=== PATIENT | male | born 1970 | race Caucasian/White ===

== ENCOUNTER 2023-07-21 08:38 | Outpatient (AMB) | payer OTHER, SELFPAY ==
[2023-07-21 08:50] VITALS: BP 124/86; PULSE 56; RESP 14; O2SAT 99; BMI 25.9
--- NOTE | 2023-07-21 08:50 | A.OFFVIS_ITS ---
Intake Vital Signs 3 07/21/23 08:50 Height 6 ft Weight 191 lb 4 oz BMI 25.9 BP 124/86 Blood Pressure Location Lt brachial Position Sitting Respiration 14 Pulse 56 Pulse Source Pulse Oximeter Pulse Oximetry (%) 99 Oxygen Delivery Method Room Air Intake Visit Reasons: Cervical Radiculopathy Allergies No Known Allergies Allergy (Verified 07/21/23 08:44) HPI HPI Comments 2 History of Present Illness0 Details Jp is a very pleasant 52-year-old male who presents to the office today with complaints of cervical neck pain and paresthesia of the right distal arm and hand. Patient reports he has been suffering with this for greater than 3 months, he denies inciting injury but does report that he has been training for a triathlon. His most bothersome symptom is paresthesia of the right arm, described as numbness, pins and needles. At times in the medial and lateral forearm, but continuously to the 2nd 3rd and 4th digits of the right hand. Patient is concerned that this will turn into permanent damage if it is not treated. He had a recent x-ray of his cervical spine which showed some degenerative changes at C5-6. His most recent MRI was back in 2019, results are not available for review at this time. He has tried home exercise program that was professionally guided, massage which exacerbated the pain, yoga which exacerbated the pain, he is currently doing PT and fascia work but has not noticed any improvement with this. He is under the care of a chiropractor, has never had injections to the neck. He has currently not taking any medications for the pain or paresthesia. In terms of muscle damage condition is described as tingling, pins and needles. Condition is negatively impacting patient's normal work, recreational activities and sleep. Review of Systems Const All systems reviewed & are unremarkable except as noted in HPI and below Physical Exam Vital Signs: Last Vital Signs Pulse 56 07/21/23 08:50 Resp 14 07/21/23 08:50 BP 124/86 07/21/23 08:50 Pulse Ox 99 07/21/23 08:50 Oxygen Delivery Method Room Air 07/21/23 08:50 BMI result Body Mass Index 25.9 General: awake, alert, oriented. Answers questions appropriately. Fully engaged in examination. Skin: warm, dry, intact HEENT: Normocephalic. Hearing intact. Cardiac: External chest normal in appearance. Respiratory: No cough, audible wheezing or stridor. Abdomen: without gross distension. MS: No obvious swelling or deformities. Spurling negative Elvey positive Signals Intelligence Analysis Manager strength equal bilateral Decreased light touch sensation right 3rd 4th 5th digits DTR intact Cap refill brisk Full cervical range of motion Neurological: Oriented to person, place, time and situation. Thought process intact. Psychiatric: Appropriate mood and affect. Good judgment and insight. Results Reviewed Results Reviewed: Assessment & Plan Assessment & Plan (1) Paresthesia of right arm: Code(s): R20.2 - Paresthesia of skin (2) Cervical radiculopathy: Code(s): M54.12 - Radiculopathy, cervical region Plan Jp is a very pleasant 52-year-old male who presented to the office today for evaluation management of his neck pain and right arm paresthesia EMG ordered to evaluate right arm/hand paresthesia MRI cervical spine without contrast ordered to evaluate for nerve root compression Discussed options for medications to assist with the burning, numbness and tingling of his right arm and hand. Discussed the options and potential side effects. Patient declines medications at this time. Continue with gentle stretching and light exercises as tolerated Follow up in the office after MRI/EMG to review results and further develop care plan. Orders: Orders 2 MR cervical spine wo con Today M54.12 - Radiculopathy, cervical region, R20.2 - Paresthesia of skin NE electromyogram (EMG) Today R20.2 - Paresthesia of skin Coding Level of Care Code New Pt Level 4 (33022) Diagnoses Paresthesia of right arm R20.2 Cervical radiculopathy M54.12
== END 2023-07-21 09:15 | disposition home or self-care (01) ==
PROVIDERS: PCP Internal Medicine; Visit Provider Registered Nurse Emergency
DX: R20.2 Paresthesia of skin (principal); M54.12 Radiculopathy, cervical region
CPT/HCPCS: 99203

== ENCOUNTER → 2023-07-21 08:38 | Outpatient (BNVA) | payer OTHER, SELFPAY | PROVIDERS: PCP Internal Medicine; Visit Provider Registered Nurse Emergency ==

== ENCOUNTER 2024-08-16 08:35 | Outpatient (AMB) | payer OTHER, SELFPAY ==
--- NOTE | 2024-08-16 08:43 | A.OFFVIS_ITS ---
Vital Signs 3 08/16/24 08:44 Height 6 ft Weight 188 lb BMI 25.5 BP 116/68 Blood Pressure Location Lt brachial Position Sitting Respiration 16 Pulse 60 Pulse Source Pulse Oximeter Pulse Oximetry (%) 99 Oxygen Delivery Method Room Air Intake Visit Reasons: FU/cervical radiculopathy patient req Product Engineering Manager Required: No Allergies No Known Allergies Allergy (Verified 08/16/24 08:45) Medication List - Last Reconciled 08/16/24 by Atiya Eng LPN sildenafil 50 mg PO DAILY PRN valacyclovir 1,000 mg PO DAILY HPI Comments Details: The patient is a 53-year-old male presenting to the office today for follow up right cervical radiculopathy. He experiences a recurrent burning, tingling and numbness sensation, predominantly triggered by certain physical positions and maneuvers. The symptoms have been present intermittently for several years but have recently worsened. Stressors such as yoga have been recognized as aggravating factors, thereby prompting cessation of such activities. Previously, non-pharmacological interventions such as home care physical therapist, massage therapy, cupping, and scraping were implemented with subjective relief, although the pain recurred despite continued engagement in these approaches. He engages in activities like running and cycling, indicating the importance of minimally invasive management to maintain his active lifestyle. Pharmacological options are avoided, following a personal decision. He does take OTC Tylenol and NSAIDs as needed with minimal improvement. He reports the worsening of symptoms, particularly after returning from a climbing trip in [facility] this past June. His symptoms predominantly involve the cervical region, with radiation down right arm to the hand extending to right 3rd 4th and 5th fingers and require a formal imaging assessment. He endorses sensation disturbances within his neck, extending into the shoulder with aberrant positioning. - Onset and Timing: Intermittent onset over approximately five years. - Quality and Character: Tingling, burning, numbness, particularly in posterior cervical and shoulder regions, worsened in specific postures. - Primary Locations: Neck, right arm into hand. - Areas of Radiation: Into the right arm, extending to three fingers of his hand. - Exacerbating Factors: Specific physical postures, frequent when the arm is abducted, or neck extended and turned leftward. - Relieving Factors: animal care service worker, massage therapy, cupping, and self- positioning for symptomatic relief. - Interference: Persistent discomfort during activities; ongoing engagement in physical activities despite pain. - Affect: Patient experiences discomfort impacting daily comfort and sleep patterns. - Analgesia: Avoidant of pharmacologic analgesics; resorts to alternative therapies. - Adverse Effects: No adverse effects noted from current non-pharmacological treatments. - Activities of Daily Living: The condition imposes a notable restriction on comfort yet maintains daily physical activities. - Aberrant Drug Related Behaviors: No evidence of misuse as analgesic medications are not regularly used or sought. Review of Systems Const Details: - Musculoskeletal: Reports progressive neck and shoulder pain with radiating numbness. Denies relief from standard OTC analgesics. - Neurological: Reports tingling sensations and muscle spasms. Denies significant weakness beyond localized pain. - General: Denies fever, weight loss. Physical Exam Vital Signs: Last Vital Signs Pulse 60 08/16/24 08:44 Resp 16 08/16/24 08:44 BP 116/68 08/16/24 08:44 Pulse Ox 99 08/16/24 08:44 Oxygen Delivery Method Room Air 08/16/24 08:44 BMI result Body Mass Index 25.5 General: awake, alert, oriented. Answers questions appropriately. Fully engaged in examination. Skin: warm, dry, intact HEENT: Normocephalic. Hearing intact. Cardiac: External chest normal in appearance. Respiratory: No cough, audible wheezing or stridor. Abdomen: without gross distension. MS: No obvious swelling or deformities. Spurling negative Elvey positive right Sap Solutions Architect strength equal bilateral Decreased cervical range of motion Neurological: Oriented to person, place, time and situation. Thought process intact. Psychiatric: Appropriate mood and affect. Good judgment and insight. Results Reviewed Results Reviewed: 06/25/2023 Assessment & Plan Assessment & Plan (1) Cervical radiculopathy: Code(s): M54.12 - Radiculopathy, cervical region Category: Medical (2) Paresthesia of right arm: Code(s): R20.2 - Paresthesia of skin Category: Medical Plan 1. Should this imaging confirm suspected nerve entrapment, a steroid injection will be considered. Continued non-pharmacologic therapies such as HEP, stretching, heat and massage therapy will remain integral. Efforts will remain concentrated on alleviating symptoms to support his active lifestyle interests without pharmacologic reliance. We will collaborate closely with the insurance for MRI approval and follow closely upon obtaining results. During our discussion, the necessity for an MRI was emphasized to delineate the etiology of the patient?s cervical radiculopathy, understanding previous attempts and insurance barriers faced. I elaborated on the specifics of cervical nerve involvement observed in prior imaging and suggested a current review with potential consideration for a steroid injection should imaging confirm significant symptoms. The patient was apprised of the procedural risks and benefits, noting previous MRI findings of impinged nerves. The rationale for non-pharmacologic treatment alignment was discussed, especially considering the need for flexibility to maintain lifestyle activities. Patient was informed and verbally consented to the use of an ambient scribe for clinic note documentation during this visit. Orders: Orders 2 MR cervical spine wo con Today M54.12 - Radiculopathy, cervical region Patient Instructions: - Await contact from the MRI facility to schedule your imaging. - Continue your current regimen of non-pharmacological therapy for symptom relief. - Make efforts to avoid positions or activities that exacerbate your symptoms. - Anticipate a follow-up discussion after obtaining MRI results for determination of further management options. - Contact medical personnel earlier if your symptoms significantly worsen or if new symptoms develop. Coding Level of Care Code Est Pt Level 3 (76393) Complex EM visit Add On G2211 Diagnoses Cervical radiculopathy M54.12 Paresthesia of right arm R20.2
[2024-08-16 08:44] VITALS: BP 116/68; PULSE 60; RESP 16; O2SAT 99; BMI 25.5
--- OUTSIDE RECORDS SUMMARY | 2024-08-16 08:54 | XMS_ITS | Clinical Summary ---
Author Organization [facility] Address [address] [place] [address] Care Team Providers Care Automation Consultant Name Role Phone Brock Paredes MD Primary Care Provider [phone] Allergies No known active allergies Medications Medication Sig Dispensed Refills Start Date End Date Status Glucosamine-Fish Oil-EPA-DHA (GLUCOSAMINE & FISH OIL PO) Take by mouth. 0 Active Multiple Vitamin (MULTI VITAMIN PO) Take by mouth. 0 Active sildenafil (VIAGRA) 50 MG tablet 0 05/20/2018 Active sulindac (CLINORIL) 200 MG tablet 0 06/01/2018 Active Family History Medical History Relation Name Comments Heart disease Father Cancer Mother Relation Name Status Comments Father Mother Social History Tobacco Use Types Packs/Day Years Used Date Smoking Tobacco: Never Assessed Sex and Gender Information Value Date Recorded Sex Assigned at Not on file Gender Identity Not on file Sexual Orientation Not on file Job Start Date Occupation Industry Not on file Not on file Not on file Last Filed Vital Signs Vital Sign Reading Time Taken Comments Blood Pressure - - Pulse - - Temperature - - Respiratory Rate - - Oxygen Saturation - - Inhaled Oxygen Concentration - - Weight 83 kg (183 lb) 04/20/2017 2:16 PM EST Height 182.9 cm (6') 04/20/2017 2:16 PM EST Body Mass Index 24.82 04/20/2017 2:16 PM EST Plan of Treatment Health Maintenance Due Date Last Done Comments Hepatitis B Vaccines (1 of 3 - 3-dose series) 1968 Hepatitis C Screening 1968 COVID-19 Vaccine (#1) 04/10/1969 Depression Screening 1980 Preventative Health Evaluation 1986 DTap / Tdap / Td (1 - Tdap) 10/10/1987 Colon Cancer Screening (Colonoscopy) 2013 Shingrix-Zoster Vaccine (1 of 2) 2018 Influenza Vaccine (#1) 2024 Pneumococcal Vaccine Aged Out No long er eligible based on patient's age to complete this topic RSV Ped < 20 months Aged Out No longe r eligible based on patient's age to complete this topic Care Teams Automation Consultant Relationship Specialty Start Date End Date Brock Paredes MD [address] [place] [id number] PCP - General Internal Medicine 04/20/17
== END 2024-08-16 08:57 | disposition home or self-care (01) ==
LOC: HO.PMC 08:35
PROVIDERS: PCP Internal Medicine; Visit Provider Registered Nurse Emergency
DX: M54.12 Radiculopathy, cervical region (principal); R20.2 Paresthesia of skin
CPT/HCPCS: 99213

== ENCOUNTER 2024-09-20 15:53 | Outpatient (AMB) | payer OTHER, SELFPAY ==
[2024-09-20 15:55] VITALS: BP 136/77; PULSE 54; BMI 25.1
--- NOTE | 2024-09-20 15:55 | MHC.OFFVIS ---
Vital Signs 09/20/24 15:55 Height 6 ft Weight 185 lb 2 oz BMI 25.1 BP 136/77 Blood Pressure Location Rt brachial Position Sitting Pulse 54 Intake Visit Reasons: Discuss MRI Results Curriculum Assistant Principal Required: No Allergies No Known Allergies Allergy (Verified 09/20/24 15:58) HPI Comments Details: The patient is a 53-year-old male presenting to the office today for review of recent MRI. He has experienced tingling and numbness in his right upper extremity that has improved since last visit. His condition has been exacerbated by prolonged cycling as part of his [email or web address] training, though treatments such as physical therapy and massage techniques have provided some relief. Imaging from a previous open MRI showed significant neural foraminal narrowing at cervical levels. The symptoms have varied over time, but intermittent tingling sensation persists, predominantly without accompanying pain, except following certain physical activities or positions. Pain today a 0/10 - Onset: Began after climbing activities in [place]; worsened by specific positions and prolonged cycling. - Quality: Tingling sensation, occasionally associated with discomfort but not direct pain in the neck. - Location: Primarily in the fingers and arm. - Radiation: Not specifically mentioned, primarily focused in the upper extremity. - Exacerbating Factors: Laying flat with arms at the side, prolonged cycling, certain neck positions or movements. - Relieving Factors: Physical therapy, massage, techniques such as scraping and cupping. - Affect: Patient's mood seems unaffected, although discomfort is noted. - Analgesia: Pain primarily manifests as a tingling sensation; no specific medications mentioned. - Adverse Effects: No medication side effects reported as the patient does not want pharmacological intervention. - Activities of Daily Living: Able to perform activities but with discomfort during certain physical activities. - Aberrant Drug Related Behaviors: Patient explicitly avoids medication use. Review of Systems Const Details: - Neurological: Reports intermittent tingling and numbness in fingers. - Musculoskeletal: Reports intermittent discomfort in right arm; denies neck pain. Physical Exam Vital Signs: Last Vital Signs Pulse 54 09/20/24 15:55 BP 136/77 09/20/24 15:55 BMI result Body Mass Index 25.1 General: awake, alert, oriented. Answers questions appropriately. Fully engaged in examination. Skin: warm, dry, intact HEENT: Normocephalic. Hearing intact. Cardiac: External chest normal in appearance. Respiratory: No cough, audible wheezing or stridor. Abdomen: without gross distension. MS: No obvious swelling or deformities. Neurological: Oriented to person, place, time and situation. Thought process intact. Psychiatric: Appropriate mood and affect. Good judgment and insight. Results Reviewed Results Reviewed: 08/31/2024 06/25/2023 Assessment & Plan Assessment & Plan (1) Cervical radiculopathy: Code(s): M54.12 - Radiculopathy, cervical region Category: Medical (2) Paresthesia of right arm: Code(s): R20.2 - Paresthesia of skin Category: Medical Plan The management approach focuses on conservative treatment, primarily physical therapy and massage. Consideration for steroid injection at C6-7 has been discussed, offering temporary symptom relief. The patient's preference to avoid pharmacological interventions is respected. Alternative strategies like hydration for disc health are implemented. Future worsening of symptoms may lead to reassessment of treatment options, particularly corticosteroid injections if needed. I discussed with the patient the diagnosis of cervical foraminal stenosis at C3-4, C5-6, and C6-7, explaining the narrowing observed in his MRI results and the potential impact on nerve conduction leading to tingling and numbness. We explored alternative treatment methods given his aversion to medications, such as ongoing physical therapy and various massage techniques. I explained the option of cervical steroid injections should symptoms worsen, highlighting both potential relief and the risks associated with steroids, including their systemic effects and contraindications for frequent use. There was a consensus to proceed with the current treatment plan, with a review and potential adjustment to include steroid use if symptoms do not improve. Follow-up discussions focused on his [employer] training and the importance of posture and hydration to aid spinal disc health. Patient was informed and verbally consented to the use of an ambient scribe for clinic note documentation during this visit. Patient Instructions: - Continue physical therapy as recommended. - Use techniques such as massage, scraping, and cupping for symptom relief. - Stay hydrated to promote disc health. - Avoid activities that exacerbate symptoms, such as prolonged cycling in aero position. - Report any worsening symptoms or changes in tingling sensation. - Follow up for re-evaluation if symptoms do not improve after Iron[employer] training. Coding Level of Care Code Est Pt Level 3 (03098) Complex EM visit Add On G2211 Diagnoses Cervical radiculopathy M54.12 Paresthesia of right arm R20.2
--- OUTSIDE RECORDS SUMMARY | 2024-09-20 15:55 | XMS_ITS | Clinical Summary ---
Author Organization [facility] Address [address] [place] [address] Care Team Providers Care Jewel Bearing Driller Name Role Phone Brock Paredes MD Primary Care Provider [phone] Allergies No known active allergies Medications Medication [...] age to complete this topic Care Teams Jewel Bearing Driller Relationship Specialty Start Date End Date Brock Paredes MD [address] [place] [id number] PCP - General Internal Medicine 04/20/17
== END 2024-09-20 16:25 | disposition home or self-care (01) ==
LOC: HO.PMC 15:54
PROVIDERS: PCP Internal Medicine; Visit Provider Registered Nurse Emergency
DX: M54.12 Radiculopathy, cervical region (principal); R20.2 Paresthesia of skin
CPT/HCPCS: 99213